=== PATIENT | female | born 1960 | race Caucasian/White ===

== ENCOUNTER 2017-06-13 23:38 | Inpatient (IN) ==
[2017-06-13] MEDS ORDERED: ASPIRIN PO STA (23:40)
[2017-06-14] MEDS ORDERED: DUONEB (A & A) INH ONE (00:32)
[2017-06-14 00:33] LABS: MANUAL DIFF NEEDED? NO
[2017-06-14 00:46] LABS: INR 0.95; PROTIME 9.9 Seconds (9.2-11.7)
[2017-06-14 00:50] LABS: PTT 18.4 Seconds (22.0-36.0)
[2017-06-14 00:52] LABS: BASO% 0.1 % (0.0-0.8); EOS# 0.01 X1000 (0.0-0.7); EOS% 0.1 % (0.0-10.0); HEMATOCRIT 41.8 % (37.0-47.0); HEMOGLOBIN 14.8 g/dL (12.0-16.0); IMM GRAN# 0.04 X1000 (0.0-0.04); IMM GRAN% 0.4 % (0.0-0.5); LYMPH# 2.74 X1000 (1.2-3.4); LYMPH% 26.3 % (20.5-51.1); MCH 34.1 PG (27-31); MCHC 35.4 g/dL (33-37); MCV 96.3 FL (81-99); MONO# 0.77 X1000 (0.11-0.59); MONO% 7.4 % (1.7-9.3); MPV 9.9 FL (7.4-10.4); NEUT% 65.7 % (42.2-75.2); PLT 277 X1000 (130-400); RBC 4.34 XMIL (4.2-5.4)
[2017-06-14] MEDS ORDERED: ZOFRAN IV ONE (00:59)
[2017-06-14] MEDS ORDERED: MORPHINE IV ONE ×4 (00:59→04:18)
[2017-06-14 03:04] LABS: AGAP 15; ALBUMIN 3.7 g/dL (3.5-5.0); ALKALINE PHOSPHATASE 60 U/L (32-104); BUN 15 mg/dL (8-22); CHLORIDE 92 mmol/L (98-107); CK PROFILE 33 U/L (24-173); COSMO 276; GOT 19 U/L (10-30); GPT 17 U/L (10-36); MAGNESIUM 1.9 mg/dL (1.5-2.7); POTASSIUM 3.8 mmol/L (3.5-5.1); SODIUM 137 mmol/L (136-145); TCO2 30 mmol/L (25-35); TOTAL BILIRUBIN 0.41 mg/dL (0.20-1.00); TOTAL PROTEIN 6.7 g/dL (6.3-8.3)
--- NOTE | 2017-06-14 03:11 | ED EKG INTERP ---
This chart was entered by Tami Sandoval Scribe, acting as scribe for Harvinder Paul MD. EKG Interpretation - EKG Time of EKG reading by physician:: 23:46 EKG Read and Signed by:: Harvinder Paul EKG Interpretation (*Must complete 3 of following elements*): Abnormal Rate: 66 Rhythm: normal sinus rhythm Sawyer: normal QRS: normal MI Interval: normal ST Wave: normal Comments: inferior infarct, age undetermined Attestation - Physician/ TAYA Attestation Patient care was provided by Advanced Practice Provider:: No The physician spent face to face time with patient:: Yes Advanced Practice Provider documentation review:: Supervising physician onsite and consulted in the evaluation and care of this patient. The physician did have a face to face encounter with the patient. This chart was documented by the indicated scribe, (Tami Sandoval Scribe) and accurately reflects the services I performed and decisions made by me, Harvinder Paul MD, as attested by the provider's signature.
--- NOTE | 2017-06-14 03:12 | PROVIDER DOCUMENTATION ---
This chart was entered by Tami Sandoval Scribe, acting as scribe for Harvinder Paul MD. HPI-Chest Pain - General Chief Complaint: Chest Pain Stated Complaint: CP, BACK PAIN Time Seen by Provider: 06/14/17 00:25 Source: patient Allergies/Adverse Reactions: Patient Allergies Allergy/AdvReac Type Severity Reaction Status Date / Time codeine AdvReac Intermediate NAUSEA/VOMI Verified 06/14/17 00:13 TING Home Medications: Home Medication List Medication Instructions Recorded Confirmed Last Taken Type Clonidine [Catapres] 0.1 mg PO BID #0 02/01/15 06/14/17 06/13/17 06:00 Rx Cefdinir 300 mg PO BID 06/14/17 06/14/17 06/13/17 06:00 History Cetirizine/Pse 12Hr [Zyrtec-D 12Hr] 1 each PO BID PRN PRN 06/14/17 06/14/1707/20 06:00 History Hydrocodone Bit/Homatropine 5 ml PO Q4H PRN PRN 06/14/17 06/14/17 06/13/17 13: 00 History [Hycodan Syrup] Losartan/Hydrochlorothiazide 1 each PO DAILY 06/14/17 06/14/17 06/13/17 06:00 History [Losartan-Hctz 100-12.5 mg Tab] Prednisone 20 mg PO DAILY 06/14/17 06/14/17 06/13/17 06:00 History - History of Present Illness-CP Nature of Presenting Problem: Patient is a 57 year old female who presents in the ED with complaints of chest/ back pain. Patient states she was recently diagnosed with bronchitis/rhinitis, and states she had a sudden onset of upper back pain and chest pain approximately two hours prior to arrival in ED. She also states she smokes one pack per day. Denies other symptoms. Location: reports: substernal Chest Pain Radiation: reports: back Quality of Pain: reports: aching Severity in ED: moderate Onset/Duration: abrupt, 1-3 hours ago Timing: still present Context/Activities at Onset: reports: other (recent dx of bronchitis) Modifying Factors: improves with: nothing Nitro Today/Relief: no nitro taken today Aspirin Treatment Today: no aspirin today Similar Symptoms Previously?: No Recently Seen Here or By Another Healthcare Provider: Yes (PCP - dx of bronchitis) Review of Systems - Adult - REVIEW OF SYSTEMS - ADULT Constitutional: denies: chills, fever Eyes: denies: discharge, decreased vision Ears, Nose, Mouth & Throat: denies: hearing loss, sinus problem Cardiovascular: reports: chest pain. denies: heart murmur, irregular heart rate , orthopnea Gastrointestinal: denies: abdominal pain, constipation, diarrhea, nausea, vomiting Genitourinary: denies: dysuria, flank pain, hematuria Musculoskeletal: denies: bone pain, frequent leg cramps, joint pain Integumentary: denies: hair loss, itching, mole changes Neurological: denies: loss of balance, numbness Psychiatric: reports: no symptoms reported Endocrine: denies: goiter, cold intolerance, heat intolerance Hematologic/Lymphatic: denies: low blood count, lymphedema Allergic/Immunologic: denies: allergic rhinitis, eczema, frequent infections Past History - Adult - PAST MEDICAL HISTORY-ADULT Review of Records: reports: Nursing Assessment Review, Medications Reviewed Major Childhood Illnesses: reports: denies history Cardiovascular: reports: denies history Respiratory: reports: denies history Gastrointestinal: reports: denies history Obstetrical/Gynecological: reports: denies history Genitourinary: reports: denies history Musculoskeletal: reports: denies history Neurological: reports: denies history Psychiatric: reports: denies history Endocrine/Immune: reports: denies history Other Conditions: reports: denies history - PRIOR SURGERIES/PROCEDURES Surgical/Procedure History: reports: hysterectomy, orthopedic (extremity) (L fibula), gastric bypass, other (bladder sling) - FAMILY HISTORY Family History: reviewed, not pertinent Physical Exam-General - PHYSICAL EXAM-ADULT Initial Vital Signs Reviewed: Yes - CONSTITUTIONAL General Appearance: alert, no apparent distress - EYES Eyes: PERRL/EOMI, pink conjunctivae - HEAD, EARS, NOSE, MOUTH & THROAT HENMT: normocephalic/atraumatic, moist mucous membranes - NECK Neck: non-tender, full range of motion, supple, normal inspection - RESPIRATORY Respiratory: chest non-tender, no pleuratic chest pain, no respiratory distress , no accessory muscle use, wheezing - CARDIOVASCULAR Cardiovascular: normal peripheral pulses, regular rate, rhythm, no edema, no gallop, no JVD, no murmur - GASTROINTESTINAL (ABDOMEN) Abdominal Exam: normal bowel sounds, non tender, soft, no organomegaly, no pulsatile mass - LYMPHATIC Lymphatic: no adenopathy - MUSCULOSKELETAL Back Exam: normal inspection, no CVA tenderness, no vertebral tenderness Extremity: normal range of motion, non-tender, normal gait, normal inspection, no pedal edema, no calf tenderness, normal capillary refill, pelvis stable - SKIN Integumentary: normal color, normal turgor, warm/dry - NEUROLOGIC Neurologic: grossly normal, no motor/sensory deficits - PSYCHIATRIC Psych/Mental Status: normal mood/affect, oriented x 3 Progress - PLAN OF CARE/RESULTS Progress/Plan/Lab Results: Vital Signs - 8 hr 06/13/17 23:42 06/14/17 00:25 06/14/17 00:30 Pulse Rate 64 81 Respiratory Rate 18 18 Blood Pressure 202/88 203/102 178/92 O2 Sat by Pulse Oximetry 97 96 06/14/17 02:30 06/14/17 04:16 Pulse Rate 73 135 H Respiratory Rate 12 Blood Pressure 167/90 99/72 O2 Sat by Pulse Oximetry 94 L 96 Laboratory Results - last 24 hr 06/14/17 06/14/17 06/14/17 00:05 00:05 00:05 WBC 10.41 RBC 4.34 Hgb 14.8 Hct 41.8 MCV 96.3 MCH 34.1 H MCHC 35.4 RDW Std Deviation 12.7 Plt Count 277 MPV 9.9 Immature Gran % (Auto) 0.4 Neut % (Auto) 65.7 Lymph % (Auto) 26.3 Ware % (Auto) 7.4 Eos % (Auto) 0.1 Baso % (Auto) 0.1 Immature Gran # (Auto) 0.04 Neut # (Auto) 6.84 H Lymph # (Auto) 2.74 Ware # (Auto) 0.77 H Eos # (Auto) 0.01 Baso # (Auto) 0.01 PT 9.9 INR 0.95 PTT (Actin FS) 18.4 L D-Dimer 1.04 H Sodium Potassium Chloride Carbon Dioxide Anion Gap BUN Creatinine Estimated GFR/1.73 m2 BUN/Creatinine Ratio Glucose Calculated Osmolality Calcium Magnesium Total Bilirubin AST ALT Alkaline Phosphatase Creatine Kinase Troponin T Thm-S-Jthoxxqrzey Pept Total Protein Albumin Globulin Albumin/Globulin Ratio 06/14/17 06/14/17 06/14/17 02:38 02:38 02:38 WBC RBC Hgb Hct MCV MCH MCHC RDW Std Deviation Plt Count MPV Immature Gran % (Auto) Neut % (Auto) Lymph % (Auto) Ware % (Auto) Eos % (Auto) Baso % (Auto) Immature Gran # (Auto) Neut # (Auto) Lymph # (Auto) Ware # (Auto) Eos # (Auto) Baso # (Auto) PT INR PTT (Actin FS) D-Dimer Sodium 137 Potassium 3.8 Chloride 92 L Carbon Dioxide 30 Anion Gap 15 BUN 15 Creatinine 0.7 Estimated GFR/1.73 m2 > 60 BUN/Creatinine Ratio 21 Glucose 127 H Calculated Osmolality 276 Calcium 10.0 Magnesium 1.9 Total Bilirubin 0.41 AST 19 ALT 17 Alkaline Phosphatase 60 Creatine Kinase 33 Troponin T < 0.010 Hio-E-Nzzwnlyqcry Pept 582 H Total Protein 6.7 Albumin 3.7 Globulin 3.0 Albumin/Globulin Ratio 1.2 Orders Category Date Time Status Cardiac Monitoring DIRECTED Care 06/13/17 23:41 Active Saline Loc NOW Care 06/13/17 23:41 Active CHEST-1 VIEW [RAD] Stat Exams 06/13/17 23:[address] ANGIOGRM/PULMONARY ARTERIES [CT] Stat Exams 06/14/17 03:10 Taken CBC WITH ELECTRONIC DIFF [HEME] Stat Lab 06/14/17 00:05 Completed CK PROFILE [SP CHEM] Q8HR Lab 06/14/17 05:00 Uncollected CK PROFILE [SP CHEM] Q8HR Lab 06/14/17 13:00 Uncollected CK PROFILE [SP CHEM] Q8HR Lab 06/14/17 21:00 Uncollected CK PROFILE [SP CHEM] Q8HR Lab 06/15/17 05:00 Uncollected CK PROFILE [SP CHEM] Q8HR Lab 06/15/17 13:00 Uncollected CK PROFILE [SP CHEM] Q8HR Lab 06/15/17 21:00 Uncollected CK PROFILE [SP CHEM] Stat Lab 06/14/17 02:38 Completed COMPREHENSIVE METABOLIC PANEL [CHEM] Stat Lab 06/14/17 02:38 Completed D-DIMER [CHEM] Stat Lab 06/14/17 00:05 Completed MAGNESIUM [CHEM] Stat Lab 06/14/17 02:38 Completed PRO B-NATRIURETIC PEPTIDE Stat Lab 06/14/17 02:38 Completed PROTIME WITH INR [COAG] Stat Lab 06/14/17 00:05 Completed PTT [COAG] Stat Lab 06/14/17 00:05 Completed TROPONIN T Q8HR Lab 06/14/17 05:00 Uncollected TROPONIN T Q8HR Lab 06/14/17 13:00 Uncollected TROPONIN T Q8HR Lab 06/14/17 21:00 Uncollected TROPONIN T Q8HR Lab 06/15/17 05:00 Uncollected TROPONIN T Q8HR Lab 06/15/17 13:00 Uncollected TROPONIN T Q8HR Lab 06/15/17 21:00 Uncollected TROPONIN T Stat Lab 06/14/17 02:38 Completed Albuterol 2.5MG/Ipratrop 0.5MG [Duoneb (A & A)] Med 06/14/17 00:32 Discontinued 9 ml INH NOW ONE Aspirin Med 06/13/17 23:40 Discontinued 325 mg PO STAT STA Morphine Med 06/14/17 04:18 Discontinued 10 mg IV NOW ONE Morphine Med 06/14/17 03:50 Discontinued 10 mg IV TECHNOLOGY SOLUTIONS ARCHITECT ONE Morphine Med 06/14/17 01:14 Discontinued 8 mg IV NOW ONE Morphine Med 06/14/17 00:59 Discontinued 8 mg IV TECHNOLOGY SOLUTIONS ARCHITECT ONE Nitroglycerin Sl [Nitroglycerin] Med 06/14/17 03:51 Active 0.4 mg SL Q5M PRN PRN Nitroglycerin Sl [Nitroglycerin] Med 06/14/17 03:54 Discontinued 1.2 mg .ROUTE .STK-MED ONE Ondansetron [Zofran] Med 06/14/17 00:59 Discontinued 4 mg IV NOW ONE Aerosol Treatments Routine Oth 06/14/17 00:32 Active Aerosol Treatments Stat Oth 06/14/17 00:32 Active EKG [EKG] Stat Ther 06/13/17 23:41 Ordered EKG [EKG] Stat Ther 06/14/17 03:49 Ordered Result Diagrams: 06/14/17 00:05 06/14/17 02:38 - REASSESSMENT Reassessment #1 Time Reassessed: 03:11 Status: improving (good relief with morphine, refused breathing treatment but had wheezes) Reassessment #2 Time Reassessed: 04:28 Status: worsening (failed nitro x3, ekg- no ischemic changes again, given morphine 10 mg. CTA of chest wnl, no PE- good relief with MS 10 mg??? no chest wall tenderness) - XRAY 1 XRAY Study: Chest Impression: Normal Departure - Departure Date of Disposition Decision: 06/14/17 Time of Disposition Decision: 04:33 DIAGNOSIS: Chest pain in adult Disposition: ADMITTED INPATIENT 09 Certified Medical Emergency: Emergent Condition: Stable Referrals and Follow-Ups: George Stone MD [Primary Care Provider] - Discharge Education: Smoking, You Can Quit, [id number]-[id number], Smoking Cessation, Tips for Success - Critical Care Note This patient required my direct & personal management of CC.: No Attestation - Physician/ TAYA Attestation Patient care was provided by Advanced Practice Provider:: No The physician spent face to face time with patient:: Yes Advanced Practice Provider documentation review:: Supervising physician onsite and consulted in the evaluation and care of this patient. The physician did have a face to face encounter with the patient. This chart was documented by the indicated scribe, (Tami Sandoval Scribe) and accurately reflects the services I performed and decisions made by me, Harvinder Paul MD, as attested by the provider's signature.
[2017-06-14] MEDS ORDERED: NITROGLYCERIN ONE (03:54)
[2017-06-14] MEDS: NITROGLYCERIN SL PRN ×3 (03:55→04:06)
--- NOTE | 2017-06-14 05:38 | EKG Report ---
Test Performed on : 06/14/2017 04:00:02 AM Test Reason : cp Blood Pressure : / mmHG Vent. Rate : 135 BPM Atrial Rate : 135 BPM P-R Int : 138 ms QRS Dur : 076 ms QT Int : 282 ms P-R-T Axes : 064 -12 056 degrees QTc Int : 423 ms Sinus tachycardia. Right atrial enlargement Inferior infarct (cited on or before 27-JAN-2015) Abnormal ECG When compared with ECG of 27-JAN-2015 16:53, Vent. rate has increased BY 58 BPM Incomplete right bundle branch block is no longer present Unconfirmed Result
[2017-06-14] MEDS ORDERED: TYLENOL PO PRN (07:29)
--- NOTE | 2017-06-14 07:37 | Diag Imaging Result Doc PS360 ---
EXAM: CHEST-1 VIEW HISTORY: cp TECHNIQUE: AP portable at 2345 COMMENT: The inspiration is somewhat suboptimal. Compared to 01/30/2015 there is been no significant change in the appearance of the chest. IMPRESSION: No evidence of acute disease. Electronically signed by Migue Gonzalez 06/14/2017 7:35 AM
--- NOTE | 2017-06-14 08:01 | Diag Imaging Result Doc PS360 ---
EXAM: CT ANGIOGRM/PULMONARY ARTERIES - 06/14/2017 HISTORY: cp with elevated ddimer TECHNIQUE: With intravenous contrast. Axial, reformatted coronal, and reformatted 3-D rotating MIP images are obtained. Dose reduction protocol. COMPARISON: None. FINDINGS: There are no filling defects identified in the pulmonary arteries. There is no indication of aortic dissection. There is a 6 mm peripheral noncalcified nodular opacity at the left upper lobe (image 45 of axial images). There is a 3 mm noncalcified nodular opacity in the slightly more inferior left upper lobe (image 68). There is mild atelectasis or scarring adjacent to the inferior portions of the major fissures. There is no consolidation, pleural effusion, or pneumothorax identified. There are nonspecific small mediastinal lymph nodes. There are a few mildly prominent lymph nodes at the left axilla. Included sections of the upper abdomen show fatty infiltration of the visualized portion of the liver. There is a 3 cm area of the left lobe of liver which is lower density than the remainder visualized liver, but is of fat density itself, compatible with asymmetrical fatty infiltration. There are postsurgical changes at stomach. IMPRESSION: No evidence of pulmonary embolism. No evidence of pneumonia. Nonspecific subcentimeter nodular densities in left upper lobe. Follow-up per Fleischner Society guidelines is recommended. Mildly prominent left axillary lymph nodes. Fatty infiltration of liver. The marketing sales consultant radiologist provided preliminary results at 4:23 AM on 06/14/2017. Electronically signed by Norris Bryant 06/14/2017 7:59 AM
[2017-06-14] MEDS: MORPHINE IV PRN ×3 (08:45→23:23)
--- NOTE | 2017-06-14 08:57 | EKG Report ---
Test Performed on : 06/14/2017 08:11:34 AM Test Reason : CP Blood Pressure : / mmHG Vent. Rate : 081 BPM Atrial Rate : 081 BPM P-R Int : 128 ms QRS Dur : 084 ms QT Int : 344 ms P-R-T Axes : 006 -10 037 degrees QTc Int : 399 ms Normal sinus rhythm. Inferior infarct (cited on or before 27-JAN-2015) Abnormal ECG When compared with ECG of 14-JUN-2017 04:00, Vent. rate has decreased BY 54 BPM Confirmed by Bonifacio Hollingsworth MD ([id number]) on 06/14/2017 8:06:33 PM
--- NOTE | 2017-06-14 09:17 | HISTORY AND PHYSICAL ---
CHIEF COMPLAINT: Chest pain. HISTORY OF PRESENT ILLNESS: Ms. Ansari is a 57-year-old female who presented to the ER with sternal chest pain starting about 4:00 yesterday afternoon and described the pain as sharp and located at the lower sternal area and radiating to her back. Denies nausea, vomiting or diaphoresis with the chest pain. She rates the chest pain as 8/10. It is constant and no relief with any positional changes. She denies any exertional courses like moving heavy furniture or things of that nature. For the last 3 weeks, she has been suffering from some sort of upper respiratory infection and was seen Wednesday at a walk-in clinic and was diagnosed with some bronchitis and sinusitis, started on antibiotics and steroids. For the upper respiratory infection, she did have some coughing and producing brownish sputum. She denies any fever, chills or shortness of breath associated with that. In the ER, the patient's EKG was normal, as there were no acute ST-T changes. There is elevated D-dimer of 1.04. Troponin was negative, first set less than 0.01. On CT angiogram, there was no pulmonary embolism, and the patient required multiple doses of morphine and nitroglycerin to help with her chest pain. At this point, the patient will be admitted for series of cardiac enzyme checks to rule out this atypical chest pain. PAST MEDICAL HISTORY: Hypertension, hyperlipidemia, history of adrenal adenoma, obesity, smoker. PAST SURGICAL HISTORY: section, hysterectomy, bladder surgery, gastric bypass, right knee surgery. FAMILY HISTORY: Father at the age of 57 with lung cancer and adrenal cancer. Mother at age of 64 with COPD. SOCIAL HISTORY: Still smoking 1 pack a day, drinking 3 small glasses of wine every night for 3 years. Denies any substance abuse. ALLERGIES: Codeine. HOME MEDICATIONS: Losartan/hydrochlorothiazide, clonidine, lovastatin, Kathy p.r.n., prednisone and Cefdinir was prescribed from a recent visit. REVIEW OF SYSTEMS: A 10-point review of systems was obtained. Please see the HPI for pertinent positives and negatives. PHYSICAL EXAMINATION: VITAL SIGNS: Temperature is 97.9, heart rate is 73, blood pressure 167/90, O2 saturation is 49% on 3 L cannula. GENERAL: This is a middle-aged white female, not in any acute distress. HEENT: Head is atraumatic and normocephalic. PERRLA. EOMI. Oral mucosa is dry. NECK: No JVD. No carotid bruit. CARDIOVASCULAR: Regular rhythm, regular rate. Normal S1 and S2. No murmur. PULMONARY: Breath sounds clear to auscultation bilaterally. No wheezing, no rales. No chest wall tenderness on palpation. GASTROINTESTINAL: Abdomen is soft, nontender and nondistended. Positive bowel sounds. EXTREMITIES: No edema. Pulses present in all extremities. SKIN: No rash. No cyanosis. No edema. NEUROLOGICAL: The patient is alert, awake and oriented x3. No focal deficit noted. DIAGNOSTIC DATA: CBC showed WBC of 10.4, hemoglobin and hematocrit of 14.8 and 41.8, platelets 277. PT is 9.9. INR is 0.95. D-dimer is 1.04. Chemistry shows sodium 137, potassium 3.8, chloride 92, bicarb 30, BUN is 15, creatinine 0.7, glucose 127. First set of troponin less than 0.01. Creatine kinase 33. BNP is 582. EKG with heart rate of 66, normal sinus rhythm. On lead V2, there is a small T wave inversion. Other than that, there are no ST-T changes. On chest x- ray, there is no infiltrate per my reading. CT angiogram with no pulmonary emboli. There is minimal bilateral bronchial wall thickening, and a few subcentimeter indeterminate pulmonary nodules are present. Diffuse fatty infiltration of the liver, more focal fatty infiltration versus indeterminate low attenuation lesions within the left lobe of the liver. IMPRESSION: 1. Atypical chest pain. 2. Hypertension. 3. Hyperlipidemia. 4. Pulmonary nodules. 5. Indeterminate finding of liver lesions, fatty liver versus lesions within the left lobe of the liver. PLAN: We will admit the patient to the [facility]. We will do serial cardiac enzymes to rule out cardiac source. Give the patient pain medicines as needed. Further action and plan depend on the hospital course and lab results. We will continue the patient's home blood pressure medicine for her blood pressure control. DVT prophylaxis using SCDs. GI prophylaxis with Nexium. The patient's PCP, Dr. Stone, will resume care tomorrow. cc: MD George Russ MD
[2017-06-14] MEDS: PRILOSEC PO SCH (10:28)
[2017-06-14] MEDS: ASPIRIN PO SCH (10:29)
--- NOTE | 2017-06-14 10:36 | CONSULTATION ---
DATE OF CONSULTATION: 06/14/2017 INDICATION: Chest pain. HISTORY OF PRESENT ILLNESS: Ms. Ansari is a 57-year-old white female with a history of hypertension and hyperlipidemia. She presented for evaluation of discomfort that was described as a squeezing diffuse discomfort that occurred around 4 o'clock yesterday afternoon while she was seated on the couch. She cannot think of any exacerbating factors. She reports the morphine she has been administered improves the discomfort. There has been some relief in the symptoms, but no resolution. She has continued despite treatment to have anywhere from 1/10 to 2 /10 discomfort or higher for greater than 12 hours. There is no nausea and no vomiting. She cannot think of any other symptoms corresponding with this. She has had 3 weeks of low-grade URI type symptoms that she apparently went to urgent care within the last week and was given some steroids and antibiotics. PAST MEDICAL HISTORY: 1. Hypertension. 2. Hyperlipidemia. 3. History of adrenal adenoma. 4. Obesity. SOCIAL HISTORY: She smokes 1 pack a day and drinks around 3 glasses of wine nightly. No substance abuse. FAMILY HISTORY: Significant for lung cancer in her father. Mother had COPD and at 64. REVIEW OF SYSTEMS: A 10-system review of systems is negative except for those things mentioned in the HPI. PHYSICAL EXAMINATION: Vital Signs: Afebrile. Heart rates have been anywhere from the 60s to the 130s. Blood pressure most recently was 152/107. She weighs 174 pounds. General: She is in mild distress secondary to discomfort. Initially when I walked in, she was lying relatively flat, but during the examination she repositioned herself several times, moans somewhat. HEENT: Oropharynx is moist. Poor dentition. Eye examination is pink conjunctivae. White sclerae. Neck: Examination shows no obvious thyromegaly or thyroid tenderness. Cardiovascular : She is in a regular rate and rhythm. She has no murmurs. No S3. No lower extremity edema. Chest: Exam was clear with the exception of some very minimal wheezing at the right upper lobe. She has no increased work of breathing. Abdomen: Soft, nontender. No obvious organomegaly. No rebound or guarding. Skin: Exam was warm and dry throughout without any rashes. Neurological: Moving all extremities well. No lateralizing deficits. Psychiatric: Alert and oriented, pleasant. Normal mood and affect. PERTINENT DATA: Chest CT showed no evidence of PE. No evidence of any infiltrate. She had some small nodular densities in the left upper lobe, as well as some prominent left axillary lymph nodes and fatty infiltration of the liver. She had a couple of EKGs, the initial showing sinus rhythm at 135 beats per minute. No clear evidence of previous infarct or ischemic changes. Second EKG occurring at 8:11 this morning shows sinus rhythm, no signs of ischemic changes or evidence for infarct. Pulmonary arteriogram as detailed above previously. Laboratory data, white count 10.4, hematocrit is 41, platelet count 277,000. INR 0.95, D-dimer 1. Sodium 137, potassium 3.8, BUN 15, creatinine 0.7. Cardiac enzymes negative times multiple sets with a proBNP of 582. ASSESSMENT: This is a 57-year-old white female with a history of hypertension who has had continued chest pain for greater than 12 hours with no interruption. Normal EKGs and normal cardiac enzymes. PLAN: We will proceed with a myocardial perfusion scan. We will perform resting images initially. If there is no significant defect, then this likely could be the end of testing considering it would be a resting study in the setting of ongoing pain. For now , we will continue with current management. We will check an echocardiogram. ADDENDUM: Initial resting myocardial perfusion images have been completed in the setting of the patient having on going pain. These images are normal suggesting coronary ischemia is not the source of the patients chest pain. Her echo images were reviewed as well and these do not seem to suggest an obvious cardiac etiology to the discomfort. I will relay these findings to the primary team. cc: MD George Christopher MD MTDD
--- NOTE | 2017-06-14 17:52 | PROGRESS NOTE ---
DATE: 06/14/2017 SUBJECTIVE: Ms. Ansari is doing fair. The patient does have pain at times in the chest, upper abdomen and back. More pain with movement. Also some muscle spasm. The patient did have CT scan of the chest. Cardiac workup done so far negative. The patient is on pain medication. The patient's problems started with sinusitis and bronchitis. The patient was on outpatient treatment with antibiotics and steroid. OBJECTIVE: Vital signs noted. Neck is supple. No JVD. Lungs: Bilateral good air entry present. CVS: S1 and S2 heard. Abdomen: Soft, globular. Bowel sounds present. No rash of shingles. Vague tenderness lumbosacral spine. HEEL FORMER: Alert, awake, able to move all 4 limbs. ASSESSMENT: Consideration chest pain, back pain and muscle spasm, hypertension, gastritis, sinusitis and bronchitis. PLAN: We will continue current treatment. I am going to try [place], put her on antibiotics, bronchodilator treatment and muscle relaxer. Close observation. Check appropriate labs. Her lab data: CT scan results reviewed. Overall plan discussed with the patient. She is in agreement. cc: George Stone MD
--- NOTE | 2017-06-14 18:39 | Diag Imaging Result Document ---
PROCEDURE NAME: MYOCARDIAL PERFU SCAN, REST - 06/14/2017 STUDY: Rest only myocardial perfusion study. This is not a gated study. REQUESTING PHYSICIAN: Dr. Michael Ansari DESCRIPTION: The patient underwent infusion of technetium 99 sestamibi 12.8 millicuries. Multiple tomographic views of the cardiac structure were obtained at rest. There was no stress performed in this case. Rest tomographic views of the left ventricle showed normal myocardial perfusion. There is no evidence of any defect at rest. The polar plot shows the same. There is normal perfusion at rest. The lung-heart ratio is normal at rest. IMPRESSION: In summary, this resting non-gated study shows normal left ventricular myocardial perfusion. No defect is identified at rest. Clinical correlation recommended. cc: MD Judith Abdi PA Bharat K. Vakharia, MD Peter Johnson, MD MTDD
[2017-06-14] MEDS: NORCO-7.5 PO PRN (19:02)
--- NOTE | 2017-06-14 19:47 | ECHO REPORT ---
ORDER DATE: 06/14/2017 INTERPRETING PHYSICIAN: Dr. Piña REQUESTING PHYSICIAN: CLINICAL INDICATIONS: Chest pain, hypertension, hyperlipidemia. M-MODE MEASUREMENTS: Right ventricle: 2.9 cm. Left ventricle end diastole: 4.0 cm. Left ventricle end systole: 2.4 cm. Posterior wall: 0.8 cm. Interventricular septum: 0.8 cm. Left atrium: 3.6 cm. Aortic root: 3.2 cm. SUMMARY OF 2-DIMENSIONAL IMAGING: The left ventricular function is normal. Ejection fraction visually in the range of 65-70%. No wall motion abnormality is noted. The right ventricle appears to be normal. The aortic valve looks normal. Color flow mapping unremarkable. The mitral valve looks grossly normal. Pulse wave Doppler of mitral inflow shows mild reversal of the E and the A wave. Tissue Doppler of septal and lateral mitral annulus averages 14 cm per second. There is no diastolic dysfunction. The tricuspid valve looks normal. Color flow mapping unremarkable. The inferior vena cava was not visualized. Pulmonary pressure is deemed to be normal. The pulmonic valve looks normal. Color flow mapping unremarkable. There is no pericardial effusion, masses or thrombus. Clinical correlation recommended. cc: MD Judith Abdi PA Bharat K. Vakharia, MD
[2017-06-14] MEDS: CATAPRES PO SCH (20:18)
[2017-06-14] MEDS: ROCEPHIN 1 GM in NS 50 ML IV SCH (20:18)
[2017-06-14 22:37] LABS: URINE SOURCE CLEAN CATCH
[2017-06-14 22:42] LABS: URINE RBC <10 /HPF (<10)
[2017-06-14 22:43] LABS: BILIRUBIN URINE NEGATIVE (NEGATIVE); BLOOD URINE NEGATIVE (NEGATIVE); COLOR ORANGE; GLUCOSE URINE NEGATIVE (NEGATIVE); PH URINE 6.5; TURBIDITY URINE CLEAR (CLEAR); UR EPITHELIAL CELLS <10 /HPF (<10); URINE BACTERIA NEGATIVE /HPF
[2017-06-14 22:44] LABS: LEUKOCYTES URINE SMALL (NEGATIVE); NITRITE URINE NEGATIVE (NEGATIVE); PROTEIN URINE 30 mg/dL (NEGATIVE); URINE CULTURE NEEDED? YES; URINE MICRO REVIEW NEEDED? YES; UROBILINOGEN URINE NORMAL (NORMAL)
[2017-06-15] MEDS: NORCO-7.5 PO PRN ×2 (02:49→09:01)
[2017-06-15 05:30] LABS: MANUAL DIFF NEEDED? NO
[2017-06-15 05:37] LABS: BASO% 0.1 % (0.0-0.8); EOS# 0.06 X1000 (0.0-0.7); EOS% 0.5 % (0.0-10.0); HEMATOCRIT 40.5 % (37.0-47.0); IMM GRAN# 0.03 X1000 (0.0-0.04); IMM GRAN% 0.2 % (0.0-0.5); LYMPH# 1.66 X1000 (1.2-3.4); LYMPH% 13.6 % (20.5-51.1); MCH 33.7 PG (27-31); MCHC 34.6 g/dL (33-37); MCV 97.4 FL (81-99); MONO# 0.54 X1000 (0.11-0.59); MONO% 4.4 % (1.7-9.3); MPV 9.7 FL (7.4-10.4); NEUT% 81.2 % (42.2-75.2); PLT 200 X1000 (130-400); RBC 4.16 XMIL (4.2-5.4)
[2017-06-15] MEDS: PRILOSEC PO SCH (06:05)
[2017-06-15] MEDS: MORPHINE IV PRN ×4 (06:05→20:10)
[2017-06-15 06:08] LABS: AGAP 13; ALBUMIN 3.3 g/dL (3.5-5.0); ALKALINE PHOSPHATASE 59 U/L (32-104); BUN 14 mg/dL (8-22); CALCIUM 9.1 mg/dL (8.8-10.2); CHLORIDE 89 mmol/L (98-107); COSMO 262; GOT 15 U/L (10-30); GPT 12 U/L (10-36); POTASSIUM 4.2 mmol/L (3.5-5.1); SODIUM 129 mmol/L (136-145); TCO2 27 mmol/L (25-35); TOTAL BILIRUBIN 0.55 mg/dL (0.20-1.00); TOTAL PROTEIN 6.4 g/dL (6.3-8.3)
[2017-06-15] MEDS ORDERED: NS + KCL 20 MEQ 1,000 ML IV SCH (06:18)
--- NOTE | 2017-06-15 06:43 | PROGRESS NOTE ---
DATE: 06/15/2017 SUBJECTIVE: Ms. Ansari is doing fair. The patient claims she does have significant pain in the abdomen and lower chest, moderate at times, severe pain. Mild nausea. No vomiting. The patient is requiring pain medication. Some times, her pain more sounds like musculoskeletal; other times, intra-abdominal pain. I am going to get CT scan of the abdomen and pelvis for further intervention. No high-grade fever or chills. No diarrhea, blood, or mucus in the stool. Patient admitted with chest pain. Her cardiac workup was negative. Chest CT results reviewed. OBJECTIVE: Vital Signs: Noted. Neck: Supple. No JVD. Lungs: Bilateral good air entry present. Occasional wheezing. Cardiovascular: S1 and S2 heard. Abdomen: Soft. The patient does have tenderness, upper abdomen; at times, hypogastric area. Extremities: No cyanosis, clubbing. No acute DVT. CROSSBOW MAKER: Alert, awake. Able to move all 4 limbs. Laboratory Data: Blood work done today did reveal leukocytosis with some left shift. Her sodium was 129, blood sugar was 140. CONSIDERATION: 1. Upper abdominal pain, chest pain. Myocardial infarction ruled out by negative cardiac isoenzymes and negative cardiac workup. 2. Urinalysis did reveal urinary tract infection. PLAN: I am going to check her for pancreatitis. Get CT scan of the abdomen and pelvis. Continue her home medicine. I started patient on IV antibiotics yesterday. Continue rest of the treatment. After reviewing labs, CT scan, we will make further recommendations. Overall plan discussed with the patient and she is in agreement. cc: George Stone MD
--- NOTE | 2017-06-15 07:54 | Diag Imaging Result Doc PS360 ---
EXAM: CT ABD/PELVIS W/ IV CONT ONLY HISTORY: abd. pain TECHNIQUE: CT of the abdomen and pelvis with intravenous contrast and dose reduction (clarity.) COMMENT: There is some fat in the major fissure inferiorly on the left which was not present on 01/30/2015. There is a subcentimeter opacity in the lateral costophrenic sulcus of the right lower lobe which was not present previously. There is a small defect in the posterior medial leaflet of the left hemidiaphragm through which some fat herniates which was present at the time the previous study. There is marked hepatic steatosis. There is focal fatty change particularly present in the far left portion of the left hepatic lobe. This was not apparent at the time the previous study. There is clearly vessels passing normally through this area and the CT density is -17 Hounsfield units versus 20 Hounsfield units seen in other parts of the liver. There is vicarious contrast excretion in the gallbladder presumably due to the thoracic study performed yesterday. There has been gastric bypass which was also present at the time the previous study. There is fluid in the gastric remnant and duodenum. There is some edema present in the left anterior pararenal space and are generally around the pancreas consistent with pancreatitis. There is no evidence of necrosis or abscess. This edema also extends around the duodenum to some extent. There are granulomata in the spleen. The spleen is not enlarged. The adrenal glands are not enlarged, however there is a 9 mm nodule in the lateral lobe of the left adrenal gland which has not changed since the previous study and presumably represents an adenoma. There is gas and some stool throughout the colon. The small bowel is not distended. There is no evidence of abdominal aortic aneurysm. There are some calcifications. The mesenteric and renal arteries are patent. There appear to be small accessory renal arteries bilaterally. There are cortical cysts bilaterally. No evidence of hydronephrosis or solid mass is present. There is a fat-containing umbilical hernia. There is no evidence of significant adenopathy. Pelvis: There is some free fluid present in the pelvis. The urinary bladder is not distended. There has been hysterectomy. The appendix is not distended. The regional skeleton is intact and unchanged. IMPRESSION: Severe hepatic steatosis with focal fatty change. Pancreatitis without evidence of necrosis or abscess. Electronically signed by Migue Gonzalez 06/15/2017 7:51 AM
[2017-06-15 07:56] LABS: AMYLASE 215 U/L (20-200)
[2017-06-15 08:11] LABS: LIPASE 443 U/L (13-60)
[2017-06-15] MEDS: ASPIRIN PO SCH (09:01)
[2017-06-15] MEDS: CATAPRES PO SCH ×2 (09:01→20:10)
[2017-06-15] MEDS: HYZAAR 100/12.5 MG TAB PO SCH (09:02)
[2017-06-15] MEDS ORDERED: DILAUDID IV PRN (12:46)
--- NOTE | 2017-06-15 18:15 | PROGRESS NOTE ---
DATE: 06/15/2017 SUBJECTIVE: Ms. Ansari is doing fair. The patient still has abdominal pain and some distention. No high-grade fever or chills. She denied any typical chest pain. OBJECTIVE: Vital signs: Noted. Neck: Supple. No JVD. Lungs: Bilateral good air entry present. Cardiovascular: S1 and S2 heard. Abdomen: Soft, globular, bowel sounds present. Mild epigastric tenderness. No guarding or rigidity. Extremities: No cyanosis or clubbing. Central Nervous System: Alert, awake, able to move all 4 limbs. IMAGING STUDIES: CT scan of the abdomen and pelvis with results reviewed which did reveal pancreatitis without evidence of necrosis or abscess, severe hepatic steatosis. LAB DATA: Done this morning revealed elevated amylase and lipase. Sodium was 129. PLAN: I will change fluid to Ringer's lactate. Continue pain medicine and rest of the treatment. Close observation. Overall plan discussed with the patient and she is in agreement. The patient wants to try morphine for the pain and we will try morphine. We will check appropriate labs in the morning. cc: George Stone MD
[2017-06-15] MEDS: POTASSIUM CHLORIDE 20 MEQ in LR 1,000 ML IV SCH (18:23)
[2017-06-15] MEDS: ROCEPHIN 1 GM in NS 50 ML IV SCH (20:10)
[2017-06-15] MEDS: ZOFRAN IV PRN (20:15)
[2017-06-16] MEDS: ZOFRAN IV PRN ×5 (00:10→16:53)
[2017-06-16] MEDS: MORPHINE IV PRN ×6 (00:10→22:51)
[2017-06-16] MEDS ORDERED: PNEUMOVAX 23 IM ONE (01:19)
[2017-06-16] MEDS: POTASSIUM CHLORIDE 20 MEQ in LR 1,000 ML IV SCH ×3 (02:32→20:11)
[2017-06-16 05:40] LABS: MANUAL DIFF NEEDED? NO
[2017-06-16 05:48] LABS: BASO% 0.1 % (0.0-0.8); EOS# 0.09 X1000 (0.0-0.7); EOS% 0.9 % (0.0-10.0); HEMATOCRIT 35.3 % (37.0-47.0); HEMOGLOBIN 12.1 g/dL (12.0-16.0); IMM GRAN# 0.03 X1000 (0.0-0.04); IMM GRAN% 0.3 % (0.0-0.5); LYMPH# 1.46 X1000 (1.2-3.4); LYMPH% 13.8 % (20.5-51.1); MCH 33.9 PG (27-31); MCHC 34.3 g/dL (33-37); MCV 98.9 FL (81-99); MONO# 0.58 X1000 (0.11-0.59); MONO% 5.5 % (1.7-9.3); NEUT% 79.4 % (42.2-75.2); PLT 167 X1000 (130-400); RBC 3.57 XMIL (4.2-5.4)
[2017-06-16] MEDS: PRILOSEC PO SCH (06:01)
[2017-06-16 06:13] LABS: AGAP 12; ALBUMIN 2.8 g/dL (3.5-5.0); ALKALINE PHOSPHATASE 56 U/L (32-104); AMYLASE 54 U/L (20-200); BUN 9 mg/dL (8-22); CALCIUM 8.1 mg/dL (8.8-10.2); CHLORIDE 92 mmol/L (98-107); COSMO 263; GOT 12 U/L (10-30); GPT 8 U/L (10-36); LIPASE 119 U/L (13-60); POTASSIUM 3.7 mmol/L (3.5-5.1); SODIUM 132 mmol/L (136-145); TCO2 28 mmol/L (25-35); TOTAL BILIRUBIN 0.32 mg/dL (0.20-1.00); TOTAL PROTEIN 5.7 g/dL (6.3-8.3)
[2017-06-16] MEDS ORDERED: SODIUM CHLORIDE 0.9% INJ SCH (06:15)
[2017-06-16] MEDS: LOVENOX SUBQ SCH (06:22)
[2017-06-16] MEDS: PROTONIX IV SCH (06:23)
--- NOTE | 2017-06-16 06:30 | PROGRESS NOTE ---
DATE: 06/16/2017 SUBJECTIVE: Ms. Ansari is doing better. Abdominal pain is less. No nausea or vomiting. Complaining of mild bloating. No dysuria or hematuria. No high-grade fever or chills. The patient had significant abdominal pain yesterday. I did amylase and lipase, which were elevated. CT scan did reveal evidence of pancreatitis. OBJECTIVE: Vital Signs: Her vital signs noted. Neck: Supple. No JVD. Lungs: Bilateral good air entry present. Cardiovascular: S1 and S2 heard. Abdomen: Soft, mild distention. Tenderness in the epigastrium. No guarding or rigidity. Extremities: No cyanosis or clubbing. No acute DVT. Central Nervous System: Alert, awake, oriented x3. CONSIDERATIONS: 1. Acute pancreatitis. 2. Hypertension. 3. Hyperlipidemia. 4. Chest pain. 5. Urinary tract infection. PLAN: We will continue current treatment. Close observation. I am going to check today's results of amylase and lipase. Out of bed to chair. Ambulate the patient in the room and hallway. Again, emphasized smoking cessation. Overall plan discussed with the patient, and she is in agreement. cc: George Stone MD
[2017-06-16] MEDS: HYZAAR 100/12.5 MG TAB PO SCH (08:28)
[2017-06-16] MEDS: CATAPRES PO SCH ×2 (08:28→20:11)
[2017-06-16] MEDS: ASPIRIN PO SCH (08:28)
[2017-06-16 12:50] LABS: HEPATITIS PROFILE ACUTE SEE COMMENTS
[2017-06-16] MEDS: ROCEPHIN 1 GM in NS 50 ML IV SCH (20:11)
[2017-06-17] MEDS: ZOFRAN IV PRN ×2 (03:11→09:06)
[2017-06-17] MEDS: MORPHINE IV PRN (03:11)
[2017-06-17] MEDS: POTASSIUM CHLORIDE 20 MEQ in LR 1,000 ML IV SCH (04:00)
[2017-06-17] MEDS: PROTONIX IV SCH (05:26)
[2017-06-17] MEDS: LOVENOX SUBQ SCH (05:26)
[2017-06-17 06:09] LABS: AGAP 14; ALBUMIN 2.7 g/dL (3.5-5.0); ALKALINE PHOSPHATASE 52 U/L (32-104); AMYLASE 36 U/L (20-200); BUN 10 mg/dL (8-22); CHLORIDE 93 mmol/L (98-107); COSMO 265; GOT 15 U/L (10-30); GPT 7 U/L (10-36); LIPASE 52 U/L (13-60); POTASSIUM 5.5 mmol/L (3.5-5.1); SODIUM 134 mmol/L (136-145); TCO2 27 mmol/L (25-35); TOTAL BILIRUBIN 0.31 mg/dL (0.20-1.00); TOTAL PROTEIN 5.9 g/dL (6.3-8.3)
[2017-06-17] MEDS ORDERED: DULCOLAX PR ONE (06:16)
[2017-06-17] MEDS ORDERED: NORCO-7.5 PO PRN (06:17)
--- NOTE | 2017-06-17 07:14 | PROGRESS NOTE ---
DATE: 06/17/2017 SUBJECTIVE: Subjectively, Ms. Ansari is doing better. Mild abdominal pain. No nausea or vomiting. No fever or chills. Tolerating liquid well. On detailed questioning, the patient claims she was drinking 2-3 small glasses of wine a day. OBJECTIVE: Vital Signs: Her vital signs noted. Neck: Supple. No jugular venous distention. Lungs: Bilateral good air entry present. Cardiovascular: S1 and S2 heard. Abdomen: Soft, nontender. Bowel sounds present. Minimal with epigastric soreness. Extremities: No cyanosis, clubbing. No acute deep venous thrombosis. AGRONOMY SUPERVISOR: Alert, awake able to move all 4 limbs. LABORATORY DATA: Did reveal mild hyperkalemia. I am going to stop IV fluid containing potassium. I am going to get abdominal ultrasound. Her lipase was normal. The plan is to advance her diet. Continue pain medicine. Ambulate the patient. Get abdominal ultrasound to check for gallstone. If she continues to do well, tolerating food well, plan is to discharge patient home this afternoon. Encouraged patient to avoid alcohol. Low-fat low-cholesterol diet. cc: George Stone MD
[2017-06-17] MEDS: HYZAAR 100/12.5 MG TAB PO SCH (09:05)
[2017-06-17] MEDS: ASPIRIN PO SCH (09:05)
[2017-06-17] MEDS: CATAPRES PO SCH (09:05)
--- NOTE | 2017-06-17 09:16 | Diag Imaging Result Doc PS360 ---
US ABDOMEN-COMPLETE - 06/17/2017 INDICATION: Abdominal Pain COMPARISON: CT from 06/15/2017 FINDINGS: The pancreas is completely obscured by bowel gas. The liver is severely fatty. The gallbladder, spleen, and both kidneys are normal. Spleen size is 7.2 x 7.1 x 2.9 cm. Common bile duct measures 3 mm. Aorta, IVC, and main portal vein are patent. IMPRESSION: Severe fatty liver. Pancreas is completely obscured. Electronically signed by Stephen Moody 06/17/2017 9:14 AM
[2017-06-17 16:24] VITALS: BP 144/78
== END 2017-06-17 16:35 | disposition home or self-care (01) ==
LOC: ED 23:38 → SUATTDRO 06-14 06:29 → 3S 06-14 06:29
PROVIDERS: ADMIT Internal Medicine; ATTEND Internal Medicine